=== PATIENT | female | born 1980 | race Caucasian/White ===

== ENCOUNTER 2024-09-27 08:43 | Outpatient (CLI) | payer OTHER, SELFPAY | END 2024-09-27 08:44 | disposition home or self-care (01) | LOC: NFLDREF 10-01 02:39 | PROVIDERS: PCP Nurse Practitioner Family; Referring Provider Nurse Practitioner Family; Visit Provider Physician Assistant Medical | DX: Z00.00 Encounter for general adult medical examination without abnormal findings (principal); E28.39 Other primary ovarian failure; E78.5 Hyperlipidemia, unspecified; R74.8 Abnormal levels of other serum enzymes; E55.9 Vitamin D deficiency, unspecified | CPT/HCPCS: 80053; 80061; 82306; 84443 ==

== ENCOUNTER 2025-05-31 14:53 | Outpatient (CLI) | payer OTHER, SELFPAY ==
--- NOTE | 2025-05-31 15:00 | CRLHL7_ITS ---
For Patients: As a result of the Century Cures Act, medical imaging exams and procedure reports are released immediately into your electronic medical record. You may view this report before your referring provider. If you have questions, please contact your health care provider. INDICATION: BILATERAL SCREENING MAMMOGRAM, ASYMPTOMATIC 44 Y/O FEMALE COMPARISON: BASELINE TECHNIQUE: Digital mammogram in CC and MLO projections including computer-aided detection (CAD) and tomosynthesis. BREAST COMPOSITION: The breasts are almost entirely fatty. FINDINGS: No suspicious findings. ASSESSMENT: BI-RADS 1 Negative RECOMMENDATION: Annual screening mammogram. A lay language report of this examination will be provided to the patient. Dictated by: Tobias Fernandez MD @ 06/03/2025 09:01:31 (Electronically Signed)
== END 2025-05-31 14:54 | disposition home or self-care (01) ==
LOC: MAMMO 14:54
PROVIDERS: PCP Physician Assistant Medical; Visit Provider Physician Assistant Medical
DX: Z12.31 Encounter for screening mammogram for malignant neoplasm of breast (principal)
CPT/HCPCS: 77063; 77067

== ENCOUNTER 2025-07-11 11:42 | Outpatient (CLI) | payer OTHER, SELFPAY | END 2025-07-11 11:43 | disposition home or self-care (01) | PROVIDERS: PCP Physician Assistant Medical; Visit Provider Obstetrics & Gynecology | DX: E28.39 Other primary ovarian failure (principal) | CPT/HCPCS: 80053; 82306; 82670; 83001; 83002; 84403; 84443 ==

== ENCOUNTER 2025-09-09 14:49 | Outpatient (CLI) | payer OTHER, SELFPAY ==
--- NOTE | 2025-09-09 14:45 | CRLHL7_ITS ---
For Patients: As a result of the Century Cures Act, medical imaging exams and procedure reports are released immediately into your electronic medical record. You may view this report before your referring provider. If you have questions, please contact your health care provider. INDICATION: Primary Ovarian Failure COMPARISON: None. TECHNIQUE: 2D leon-scale and color Doppler images were acquired of the pelvis using a transabdominal and transvaginal approach. Transvaginal imaging performed to better visualize the endometrial stripe and ovaries. FINDINGS: Sonographic images demonstrate a normal size and smooth outer contour of the uterus. Uterus measures 8.0 cm in length by 3.5 cm in AP diameter by 4.9 cm in transverse dimension. Multiple cervical nabothian cysts are present. Myometrium is heterogeneous. No defined fibroid. The endometrial lining measures 6.1 mm in composite thickness. The right ovary is not visualized due to overlying bowel gas and the left ovary measures 2.5 x 1.6 x 1.7 cm. The left ovary demonstrates normal arterial and venous blood flow on color Doppler analysis. There are no suspicious fluid collections within the cul-de-sac. IMPRESSION: Normal left ovary. Right ovary not visualized due to overlying bowel gas. Endometrium measures 6.3 millimeters. Dictated by Tobias Fernandez MD @ 09/09/2025 3:50:01 PM (Electronically Signed)
== END 2025-09-09 14:50 | disposition home or self-care (01) ==
PROVIDERS: PCP Physician Assistant Medical; Visit Provider Obstetrics & Gynecology
DX: E28.39 Other primary ovarian failure (principal); R93.89 Abnormal findings on diagnostic imaging of other specified body structures; Z87.39 Personal history of other diseases of the musculoskeletal system and connective tissue
CPT/HCPCS: 76830; 76856

== ENCOUNTER 2025-10-10 12:09 | Outpatient (CLI) | payer OTHER, SELFPAY ==
[2025-10-10 18:54] LABS: Chlamydia DNA Amplified* NOT DETECTED (No Detected); GC DNA Amplified* NOT DETECTED (No Detected)
[2025-10-12 20:58] LABS: HPV Source Cervix
[2025-10-15 11:01] LABS: Pap Test Digital Imaging Done
== END 2025-10-10 12:10 | disposition home or self-care (01) ==
PROVIDERS: PCP Physician Assistant Medical; Visit Provider Physician Assistant Medical
DX: Z00.00 Encounter for general adult medical examination without abnormal findings (principal)
CPT/HCPCS: 80053; 80061; 82306; 84443; 87491; 87591; 87624; 87625; 88141; 88142; 88175

== ENCOUNTER 2025-10-23 14:52 | Outpatient (CLI) | payer OTHER, SELFPAY ==
--- NOTE | 2025-10-23 15:00 | CRLHL7_ITS ---
For Patients: As a result of the Century Cures Act, medical imaging exams and procedure reports are released immediately into your electronic medical record. You may view this report before your referring provider. If you have questions, please contact your health care provider. XR DXA Bone Mineral Density (BMD) Reason for exam: History of osteopenia. Current height (in): 66.0. Weight (lb): 209.0. Menopause age: 17. Ethnicity: White. 1. Have you had a previous hip or vertebral fracture? No. 2. Have you had any fractures during your adult life which did not result from significant trauma (e.g., auto accident)? No. 3. Did either of your parents have a hip fracture? No. 4. Do you smoke? No. 5. Have you ever taken Glucocorticoids? No. 6. Do you have rheumatoid arthritis? No. 7. Do you have secondary osteoporosis? No. 8. Do you drink 3 or more alcoholic drinks per day? No. 9. Are you being treated for osteoporosis? No. 10. Have you ever taken any of the following medications: Actonel, Evista, Fosamax, Miacalcin, Reclast, Boniva, Forteo, HRT (i.e. estrogen/hormone therapy), Protelos, Prolia, Vitamin D, Calcium, other ??? please specify. ANSWER: Yes, vitamin D, calcium, hormone replacement therapy. 11. Do you have any of the following medical conditions: Anorexia or bulimia, asthma or emphysema, end stage renal disease, hyperparathyroidism, any seizure disorders, cancer, inflammatory bowel diseases, hysterectomy, other ??? please specify. ANSWER: Yes, asthma or emphysema. 12. What was your maximum height (inches)? 66. 13. Do you perform weight bearing exercise regularly? No. 14. Do you regularly consume dairy products? Yes. 15. Do you drink caffeinated beverages? Yes. 16. At what age did your period start? 12. 17. Are you premenopausal? No. 18. How many full term pregnancies have you had? Zero. 19. Have you ever missed your period for more than 6 months in a row (not including or menopause)? Yes. . TECHNIQUE: Bone mineral density study was performed using the [employer]. FINDINGS: The results of the study expressed as bone mineral density (BMD) are as follows: Lumbar spine L1 to L4: BMD: 1.058 g/cm2. T-score: 0.1. Z-score: 0.7. Neck Left: BMD: 0.764 g/cm2. T-score: -0.8. Z-score: -0.2. Right: BMD: 0.753 g/cm2. T-score: -0.9. Z-score: -0.3. Total Left: BMD: 0.938 g/cm2. T-score: -0.0. Z-score: 0.3. Right: BMD: 0.913 g/cm2. T-score: -0.2. Z-score: 0.1. IMPRESSION: Normal bone density. Tobias Fernandez M.D. Diagnostic Radiologist [email or web address] bM/Dictated by: Tobias Fernandez MD @ 10/23/2025 3:58:00 PM (Electronically Signed)
== END 2025-10-23 14:53 | disposition home or self-care (01) ==
LOC: RAD 14:53
PROVIDERS: PCP Physician Assistant Medical; Visit Provider Obstetrics & Gynecology
DX: Z87.39 Personal history of other diseases of the musculoskeletal system and connective tissue (principal)
CPT/HCPCS: 77080